=== PATIENT | male | born 1975 ===

== ENCOUNTER 2018-05-10 07:48 | Day surgery (SDC) | payer OTHER ==
[~2018-05-10] VITALS: Ht 185.4 cm; Wt 88.5 kg
[2018-05-10 10:29] VITALS: BP 131/77
== END 2018-05-10 12:40 | DRG 352 ==
LOC: ORM 07:48
PROVIDERS: ATTEND Surgery
PROC: 0YU50JZ Supplement Right Inguinal Region with Synthetic Substitute, Open Approach (ICD-10-PCS; principal; 2018-05-10)
DX: K40.91 Unilateral inguinal hernia, without obstruction or gangrene, recurrent (principal)
CPT/HCPCS: C9290